=== PATIENT | male | born 1965 | race Caucasian/White ===

== ENCOUNTER 2021-06-23 08:00 | Outpatient (CLI) | payer OTHER ==
--- NOTE | 2021-06-23 12:40 | XRAY Report ---
PROCEDURE: Knee 4 View LT INDICATIONS: LEFT KNEE PAIN TECHNIQUE: 3 views of the left knee(s) were acquired. AP weightbearing view of both knees. COMPARISON: None. FINDINGS: Bones: No fractures or dislocations. No suspicious bony lesions. Right: Mild to moderate medial compartment height loss. Tricompartment osteophytosis. Left: Moderate to advanced medial compartment joint space narrowing with sclerosis of the tibial plat eau. Tricompartment osteophytosis. Soft tissues: Small left joint effusion. No suspicious soft tissue calcifications. IMPRESSION: 1. Osteoarthrosis of the left knee as detailed above. Reviewed by: Trey Fraire MD on 06/23/2021 12:39 PM PST Approved by: Trey Fraire MD on 06/23/2021 12:39 PM [facility] Station ID: [id number]
== END 2021-06-23 23:59 ==
LOC: DI.N 08:00 → MERGE 08:53 → DI.N 23:59
PROVIDERS: ATTEND Physician Assistant
DX: M17.12 Unilateral primary osteoarthritis, left knee (principal)